=== PATIENT | female | born 1960 | race African-American/Black ===

== ENCOUNTER 2024-09-17 12:26 | Outpatient (CLI) | payer OTHER, MEDICAID ==
[~2024-09-17 12:26] MED LIST: Iopamidol 300 61% 100 ML VIAL FS ONE
== END 2024-09-17 12:27 | disposition home or self-care (01) ==
LOC: CSHCT 12:26
PROVIDERS: ATTEND Internal Medicine Cardiovascular Disease
DX: R47.81 Slurred speech (principal)
CPT/HCPCS: 70470